=== PATIENT | female | born 1940 | race Caucasian/White ===

== ENCOUNTER 2022-02-26 11:10 | Inpatient (IN) | payer OTHER ==
[~2022-02-26] VITALS: Ht 147.3 cm; Wt 45.4 kg
[2022-02-26 11:26] VITALS: BP_SYST 144
[2022-02-26] MEDS ORDERED: NACL 0.9% 1,000 ML IV ONE (11:45)
[2022-02-26] MEDS ORDERED: ONDANSETRON HCL 4 MG/2 ML VIAL IVP ONE (11:45)
[2022-02-26 12:04] LABS: BASOPHILS % (AUTO) 0.6 % (0.0-2.0); EOSINOPHILS % (AUTO) 0.1 % (0.0-4.0); HEMATOCRIT 35.6 % (36-48); HEMOGLOBIN 12.2 g/dL (12.0-16.0); LYMPHOCYTES # (AUTO) 0.4 K/uL (1.0-5.5); LYMPHOCYTES % (AUTO) 4.6 % (20.5-51.5); MEAN CORPUSCULAR HEMOGLOBIN 32 pg (27-31); MEAN CORPUSCULAR HGB CONC 34 % (32-36); MEAN CORPUSCULAR VOLUME 93 fL (79.0-98.0); MONOCYTES # (AUTO) 0.4 K/uL (0.0-1.0); MONOCYTES % (AUTO) 4.4 % (1.7-9.3); NEUTROPHILS % (AUTO) 90.3 % (40.0-70.0); PLATELET COUNT (AUTO) 638 K/uL (130-430); RED BLOOD CELL COUNT(AUTO) 3.85 MIL/uL (4.2-6.2); RED CELL DISTRIBUTION WIDTH 13.5 % (9.0-15.0); WHITE BLOOD COUNT (AUTO) 8.9 K/uL (4.8-10.8)
[2022-02-26 12:10] LABS: ANION GAP 14 (5-15); CALCIUM 10.6 mg/dL (8.4-11.0); CHLORIDE 96 mmol/L (98-107); CREATININE 1.58 mg/dL (0.55-1.30); GLUCOSE 89 mg/dL (70-99); POTASSIUM 4.3 mmol/L (3.5-5.1); SODIUM SERUM 132 mmol/L (136-145); UREA NITROGEN, BLOOD 49 mg/dL (8-21)
[2022-02-26 12:34] LABS: ALANINE AMINOTRANSFERASE 23 U/L (12-78); ALBUMIN 2.3 g/dL (3.4-4.8); ASPARTATE AMINOTRANSFERASE 41 U/L (10-37); LIPASE 501 U/L (73-393); TOTAL BILIRUBIN 0.3 mg/dL (0.0-1.0)
[2022-02-26] MEDS ORDERED: fentaNYL CITRATE/PF 100 MCG/2 ML AMP IVP ONE (13:00)
[2022-02-26] MEDS: IBUPROFEN 400 MG TABLET PO PRN ×2 (15:46→15:47)
[2022-02-26] MEDS ORDERED: IBUPROFEN 400 MG TABLET ONE (15:47)
[2022-02-26 17:49] VITALS: BP_SYST 154
[2022-02-26] MEDS ORDERED: TRAM100T34 PO (18:05)
[2022-02-26] MEDS ORDERED: IBUP-1970 PO (18:05)
[2022-02-26 20:10] VITALS: BP_SYST 135
[2022-02-26] MEDS ORDERED: IBUPROFEN 800 MG TABLET PO PRN (23:00)
[2022-02-26] MEDS ORDERED: TEMAZEPAM 7.5 MG CAPSULE PO ONE (23:00)
[2022-02-26] MEDS: traMADol HCL HCL 50 MG TABLET (ULTRAM) PO PRN (23:43)
[2022-02-27 00:16] VITALS: BP_SYST 126
[2022-02-27] MEDS: HYDROcodone/ACETAMIN 7.5-325 MG TAB PO PRN (01:15)
[2022-02-27 08:00] VITALS: BP_SYST 138
[2022-02-27] MEDS: traMADol HCL HCL 50 MG TABLET (ULTRAM) PO PRN ×2 (09:28→20:17)
[2022-02-27] MEDS: ONDANSETRON HCL 4 MG/2 ML VIAL IM PRN ×2 (11:03→20:18)
[2022-02-27 12:00] VITALS: BP_SYST 130
[2022-02-27] MEDS ORDERED: LORazepam 2 MG/ML VIAL IVP PRN (12:15)
[2022-02-27] MEDS ORDERED: ONDANSETRON HCL 4 MG/2 ML VIAL IVP PRN (12:15)
[2022-02-27 16:00] VITALS: BP_SYST 132
[2022-02-27] MEDS: TEMAZEPAM 7.5 MG CAPSULE PO SCH (20:17)
[2022-02-28 08:00] VITALS: BP_SYST 137
[2022-02-28] MEDS: traMADol HCL HCL 50 MG TABLET (ULTRAM) PO PRN ×2 (10:00→16:58)
[2022-02-28] MEDS ORDERED: ALBUMIN HUMAN 25% 200 ML IV ONE (10:00)
[2022-02-28 10:35] LABS: BASOPHILS % (AUTO) 0.3 % (0.0-2.0); EOSINOPHILS % (AUTO) 0.4 % (0.0-4.0); HEMOGLOBIN 11.4 g/dL (12.0-16.0); LYMPHOCYTES # (AUTO) 0.6 K/uL (1.0-5.5); LYMPHOCYTES % (AUTO) 6.6 % (20.5-51.5); MEAN CORPUSCULAR HEMOGLOBIN 32 pg (27-31); MEAN CORPUSCULAR HGB CONC 35 % (32-36); MEAN CORPUSCULAR VOLUME 93 fL (79.0-98.0); MONOCYTES # (AUTO) 0.6 K/uL (0.0-1.0); MONOCYTES % (AUTO) 7.6 % (1.7-9.3); NEUTROPHILS # (AUTO) 7.3 K/uL (1.8-7.7); NEUTROPHILS % (AUTO) 85.1 % (40.0-70.0); PLATELET COUNT (AUTO) 544 K/uL (130-430); RED BLOOD CELL COUNT(AUTO) 3.56 MIL/uL (4.2-6.2); RED CELL DISTRIBUTION WIDTH 13.1 % (9.0-15.0); WHITE BLOOD COUNT (AUTO) 8.6 K/uL (4.8-10.8)
[2022-02-28 10:36] LABS: PROTHROMBIN TIME 10.3 SECS (9.5-12.5)
[2022-02-28 10:43] LABS: ALANINE AMINOTRANSFERASE 25 U/L (12-78); ALBUMIN 2.1 g/dL (3.4-4.8); ANION GAP 9 (5-15); ASPARTATE AMINOTRANSFERASE 42 U/L (10-37); CALCIUM 10.2 mg/dL (8.4-11.0); CHLORIDE 102 mmol/L (98-107); CREATININE 1.14 mg/dL (0.55-1.30); GLUCOSE 95 mg/dL (70-99); PHOSPHORUS 2.1 mg/dL (2.7-4.5); POTASSIUM 3.5 mmol/L (3.5-5.1); SODIUM SERUM 137 mmol/L (136-145); TOTAL BILIRUBIN 0.2 mg/dL (0.0-1.0); UREA NITROGEN, BLOOD 33 mg/dL (8-21)
[2022-02-28] MEDS ORDERED: NALOXONE HCL 0.4 MG/ML AMP (NARCAN) IVP PRN (11:45)
[2022-02-28 12:00] VITALS: BP_SYST 116
[2022-02-28] MEDS: MORPHINE 2 MG/ML INJ. SYRINGE IVP PRN ×2 (12:31→22:07)
[2022-02-28] MEDS: ACETYLCYSTEINE 20% 800 MG/4 ML VIAL (ORAL) PO SCH (13:59)
[2022-02-28] MEDS ORDERED: iohexoL 350 mgI/mL, 100 ML INFUS..BTL IV ONE (15:18)
[2022-02-28 16:00] VITALS: BP_SYST 115
[2022-02-28] MEDS: 0.45% NACL 1,000 ML IV SCH (17:11)
[2022-02-28 19:00] VITALS: BP_SYST 125
[2022-02-28] MEDS: TEMAZEPAM 7.5 MG CAPSULE PO SCH (22:05)
[2022-02-28 23:51] LABS: BILIRUBIN,URINE NEGATIVE (NEGATIVE); BLOOD, URINE NEGATIVE (NEGATIVE); CLARITY/URINE CLEAR (CLEAR); COLOR,URINE YELLOW (YELLOW); GLUCOSE,URINE NEGATIVE (NEGATIVE); KETONES,URINE NEGATIVE (NEGATIVE); LEUKOCYTE ESTERASE ,URINE NEGATIVE (NEGATIVE); NITRITE, URINE NEGATIVE (NEGATIVE); PROTEIN URINE NEGATIVE (NEGATIVE); UROBILINOGEN,URINE 0.2 (0.2-1.0)
[2022-03-01 00:37] VITALS: BP_SYST 114
[2022-03-01] MEDS: 0.45% NACL 1,000 ML IV SCH ×3 (00:50→20:36)
[2022-03-01] MEDS: ACETYLCYSTEINE 20% 800 MG/4 ML VIAL (ORAL) PO SCH (01:19)
[2022-03-01] MEDS: MORPHINE 2 MG/ML INJ. SYRINGE IVP PRN ×4 (05:33→23:55)
[2022-03-01 07:41] LABS: BASOPHILS % (AUTO) 0.5 % (0.0-2.0); EOSINOPHILS # (AUTO) 0.1 K/uL (0.0-0.4); EOSINOPHILS % (AUTO) 0.7 % (0.0-4.0); HEMATOCRIT 33.6 % (36-48); HEMOGLOBIN 11.3 g/dL (12.0-16.0); LYMPHOCYTES # (AUTO) 0.7 K/uL (1.0-5.5); LYMPHOCYTES % (AUTO) 7.5 % (20.5-51.5); MEAN CORPUSCULAR HEMOGLOBIN 31 pg (27-31); MEAN CORPUSCULAR HGB CONC 34 % (32-36); MEAN CORPUSCULAR VOLUME 93 fL (79.0-98.0); MONOCYTES # (AUTO) 0.8 K/uL (0.0-1.0); MONOCYTES % (AUTO) 8.8 % (1.7-9.3); NEUTROPHILS # (AUTO) 7.3 K/uL (1.8-7.7); NEUTROPHILS % (AUTO) 82.5 % (40.0-70.0); PLATELET COUNT (AUTO) 452 K/uL (130-430); RED BLOOD CELL COUNT(AUTO) 3.63 MIL/uL (4.2-6.2); RED CELL DISTRIBUTION WIDTH 13.3 % (9.0-15.0); WHITE BLOOD COUNT (AUTO) 8.8 K/uL (4.8-10.8)
[2022-03-01 08:03] LABS: ALANINE AMINOTRANSFERASE 20 U/L (12-78); ANION GAP 6 (5-15); ASPARTATE AMINOTRANSFERASE 38 U/L (10-37); CALCIUM 9.5 mg/dL (8.4-11.0); CHLORIDE 100 mmol/L (98-107); CREATININE 1.03 mg/dL (0.55-1.30); GLUCOSE 96 mg/dL (70-99); POTASSIUM 3.3 mmol/L (3.5-5.1); SODIUM SERUM 133 mmol/L (136-145); TOTAL BILIRUBIN 0.2 mg/dL (0.0-1.0); UREA NITROGEN, BLOOD 24 mg/dL (8-21)
[2022-03-01 08:06] LABS: HEPATITIS B SURFACE AG Negative (Negative); HEPATITIS C VIRUS AB <0.1 s/co ratio (0.0-0.9)
[2022-03-01] MEDS: traMADol HCL HCL 50 MG TABLET (ULTRAM) PO PRN ×3 (09:14→20:32)
[2022-03-01 09:50] VITALS: BP_SYST 131
[2022-03-01] MEDS: ONDANSETRON HCL 4 MG/2 ML VIAL IM PRN (14:59)
[2022-03-01 20:00] VITALS: BP_SYST 111
[2022-03-01] MEDS: TEMAZEPAM 7.5 MG CAPSULE PO SCH (20:31)
[2022-03-01] MEDS ORDERED: POTASSIUM CHLORIDE 20 MEQ TAB.PRT.SR PO ONE (22:00)
[2022-03-01 22:07] LABS: BF APPEARANCE UNSPUN SLIGHTLY HAZY (CLEAR); BODY FLUID COLOR YELLOW (LT YELLOW); BODY FLUID SOURCE/ TYPE PARACENTESIS; SOURCE/TYPE ,BODY FLUID PARACENTESIS
[2022-03-01 22:08] LABS: BODY FLUID TOTAL VOLUME 4700 mL; LYMPHOCYTES, BODY FLUID 42 %; MONOCYTES,BODY FLUID 47 %; NEUTROPHIL, BODY FLUID 11 %; RBC, BODY FLUID 683 /uL; WBC, BODY FLUID 166 /uL
[2022-03-01 22:14] LABS: APPEARANCE,SPUN,BODY FLUID CLEAR (CLEAR)
[2022-03-02] MEDS: DOCUSATE SODIUM 100 MG CAPSULE PO SCH ×3 (00:04→21:14)
[2022-03-02] MEDS: MORPHINE 2 MG/ML INJ. SYRINGE IVP PRN ×2 (04:06→08:57)
[2022-03-02 08:45] VITALS: BP_SYST 111; BP_SYST 137
[2022-03-02] MEDS: ONDANSETRON HCL 4 MG/2 ML VIAL IM PRN (08:55)
[2022-03-02 09:14] LABS: ANION GAP 8 (5-15); CALCIUM 9.7 mg/dL (8.4-11.0); CHLORIDE 100 mmol/L (98-107); CREATININE 0.95 mg/dL (0.55-1.30); GLUCOSE 92 mg/dL (70-99); POTASSIUM 4.3 mmol/L (3.5-5.1); SODIUM SERUM 132 mmol/L (136-145); UREA NITROGEN, BLOOD 18 mg/dL (8-21)
[2022-03-02] MEDS ORDERED: DOCU-144 PO (10:56)
[2022-03-02] MEDS ORDERED: TEMA7.5C2 PO (10:56)
[2022-03-02 10:58] VITALS: BP_SYST 127
[2022-03-02] MEDS: traMADol HCL HCL 50 MG TABLET (ULTRAM) PO PRN ×3 (11:02→23:22)
[2022-03-02] MEDS ORDERED: TRAM100T34 PO (11:21)
[2022-03-02] MEDS: HYDROcodone/ACETAMIN 7.5-325 MG TAB PO PRN ×2 (14:02→21:15)
[2022-03-02 15:25] VITALS: BP_SYST 106
[2022-03-02 18:50] LABS: BASOPHILS # (AUTO) 0.1 K/uL (0.0-0.2); BASOPHILS % (AUTO) 0.8 % (0.0-2.0); EOSINOPHILS # (AUTO) 0.1 K/uL (0.0-0.4); EOSINOPHILS % (AUTO) 1.3 % (0.0-4.0); HEMOGLOBIN 10.9 g/dL (12.0-16.0); LYMPHOCYTES # (AUTO) 0.8 K/uL (1.0-5.5); MEAN CORPUSCULAR HEMOGLOBIN 31 pg (27-31); MEAN CORPUSCULAR HGB CONC 33 % (32-36); MEAN CORPUSCULAR VOLUME 94 fL (79.0-98.0); MONOCYTES # (AUTO) 0.8 K/uL (0.0-1.0); MONOCYTES % (AUTO) 8.9 % (1.7-9.3); NEUTROPHILS # (AUTO) 7.3 K/uL (1.8-7.7); PLATELET COUNT (AUTO) 504 K/uL (130-430); RED BLOOD CELL COUNT(AUTO) 3.51 MIL/uL (4.2-6.2); RED CELL DISTRIBUTION WIDTH 13.4 % (9.0-15.0); WHITE BLOOD COUNT (AUTO) 9.1 K/uL (4.8-10.8)
[2022-03-02 20:00] VITALS: BP_SYST 115
[2022-03-02 20:16] LABS: BODY FLUID GLUCOSE 86 mg/dL; BODY FLUID TOTAL PROTEIN 3.8 g/dL
[2022-03-02] MEDS: TEMAZEPAM 7.5 MG CAPSULE PO SCH (21:14)
[2022-03-02] MEDS: 0.45% NACL 1,000 ML IV SCH (21:16)
[2022-03-03] VITALS: BP_SYST 127
[2022-03-03] MEDS: 0.45% NACL 1,000 ML IV SCH ×2 (05:56→20:09)
[2022-03-03] MEDS: MORPHINE 2 MG/ML INJ. SYRINGE IVP PRN ×5 (05:58→22:08)
[2022-03-03 08:00] VITALS: BP_SYST 135
[2022-03-03 08:53] LABS: BASOPHILS % (AUTO) 0.5 % (0.0-2.0); EOSINOPHILS # (AUTO) 0.1 K/uL (0.0-0.4); EOSINOPHILS % (AUTO) 1.2 % (0.0-4.0); HEMATOCRIT 31.6 % (36-48); HEMOGLOBIN 10.9 g/dL (12.0-16.0); LYMPHOCYTES # (AUTO) 0.6 K/uL (1.0-5.5); LYMPHOCYTES % (AUTO) 6.2 % (20.5-51.5); MEAN CORPUSCULAR HEMOGLOBIN 32 pg (27-31); MEAN CORPUSCULAR HGB CONC 35 % (32-36); MEAN CORPUSCULAR VOLUME 92 fL (79.0-98.0); MONOCYTES # (AUTO) 0.9 K/uL (0.0-1.0); MONOCYTES % (AUTO) 8.9 % (1.7-9.3); NEUTROPHILS # (AUTO) 8.5 K/uL (1.8-7.7); NEUTROPHILS % (AUTO) 83.2 % (40.0-70.0); PLATELET COUNT (AUTO) 488 K/uL (130-430); RED BLOOD CELL COUNT(AUTO) 3.42 MIL/uL (4.2-6.2); RED CELL DISTRIBUTION WIDTH 13.5 % (9.0-15.0); WHITE BLOOD COUNT (AUTO) 10.2 K/uL (4.8-10.8)
[2022-03-03] MEDS: DOCUSATE SODIUM 100 MG CAPSULE PO SCH ×3 (09:00→21:15)
[2022-03-03 09:06] LABS: ANTI NUCLEAR AB WITH REFLEX Negative (Negative)
[2022-03-03 09:06] LABS: ALANINE AMINOTRANSFERASE 24 U/L (12-78); ALBUMIN 1.9 g/dL (3.4-4.8); ANION GAP 9 (5-15); ASPARTATE AMINOTRANSFERASE 42 U/L (10-37); CALCIUM 9.5 mg/dL (8.4-11.0); CHLORIDE 99 mmol/L (98-107); CREATININE 1.06 mg/dL (0.55-1.30); GLUCOSE 92 mg/dL (70-99); POTASSIUM 4.7 mmol/L (3.5-5.1); SODIUM SERUM 133 mmol/L (136-145); TOTAL BILIRUBIN 0.2 mg/dL (0.0-1.0); UREA NITROGEN, BLOOD 19 mg/dL (8-21)
[2022-03-03] MEDS ORDERED: MIDAZOLAM HCL 5 MG/5 ML VIAL ONE (09:24)
[2022-03-03] MEDS: ONDANSETRON HCL 4 MG/2 ML VIAL IM PRN ×2 (10:15→17:31)
[2022-03-03] MEDS: HYDROcodone/ACETAMIN 7.5-325 MG TAB PO PRN ×2 (11:57→21:15)
[2022-03-03 13:00] VITALS: BP_SYST 111
[2022-03-03] MEDS: traMADol HCL HCL 50 MG TABLET (ULTRAM) PO PRN (16:08)
[2022-03-03 16:29] VITALS: BP_SYST 116
[2022-03-03 20:06] VITALS: BP_SYST 106
[2022-03-03] MEDS: TEMAZEPAM 7.5 MG CAPSULE PO SCH (21:16)
[2022-03-04] VITALS: BP_SYST 106
[2022-03-04 06:50] LABS: BASOPHILS % (AUTO) 0.5 % (0.0-2.0); EOSINOPHILS # (AUTO) 0.1 K/uL (0.0-0.4); EOSINOPHILS % (AUTO) 0.9 % (0.0-4.0); HEMOGLOBIN 10.5 g/dL (12.0-16.0); LYMPHOCYTES # (AUTO) 0.7 K/uL (1.0-5.5); LYMPHOCYTES % (AUTO) 7.2 % (20.5-51.5); MEAN CORPUSCULAR HEMOGLOBIN 32 pg (27-31); MEAN CORPUSCULAR HGB CONC 35 % (32-36); MEAN CORPUSCULAR VOLUME 92 fL (79.0-98.0); MONOCYTES # (AUTO) 0.7 K/uL (0.0-1.0); MONOCYTES % (AUTO) 7.7 % (1.7-9.3); NEUTROPHILS # (AUTO) 7.6 K/uL (1.8-7.7); NEUTROPHILS % (AUTO) 83.7 % (40.0-70.0); PLATELET COUNT (AUTO) 496 K/uL (130-430); RED BLOOD CELL COUNT(AUTO) 3.25 MIL/uL (4.2-6.2); RED CELL DISTRIBUTION WIDTH 13.6 % (9.0-15.0); WHITE BLOOD COUNT (AUTO) 9.1 K/uL (4.8-10.8)
[2022-03-04 08:00] VITALS: BP_SYST 126
[2022-03-04 08:08] LABS: ANION GAP 3 (5-15); CALCIUM 9.7 mg/dL (8.4-11.0); CHLORIDE 100 mmol/L (98-107); GLUCOSE 102 mg/dL (70-99); POTASSIUM 4.9 mmol/L (3.5-5.1); SODIUM SERUM 128 mmol/L (136-145); UREA NITROGEN, BLOOD 16 mg/dL (8-21)
[2022-03-04] MEDS: DOCUSATE SODIUM 100 MG CAPSULE PO SCH ×2 (09:51→21:09)
[2022-03-04] MEDS: 0.45% NACL 1,000 ML IV SCH ×2 (09:51→21:10)
[2022-03-04] MEDS: MORPHINE 2 MG/ML INJ. SYRINGE IVP PRN ×3 (09:52→23:07)
[2022-03-04 12:00] VITALS: BP_SYST 122
[2022-03-04 13:06] LABS: ANTI-SMOOTH MUSCLE AB 6 Units (0-19)
[2022-03-04] MEDS: HYDROcodone/ACETAMIN 7.5-325 MG TAB PO PRN (13:07)
[2022-03-04] MEDS: ONDANSETRON HCL 4 MG/2 ML VIAL IM PRN (17:02)
[2022-03-04 20:52] VITALS: BP_SYST 122
[2022-03-04] MEDS ORDERED: guaiFENesin ER 600 MG TAB PO SCH (21:00)
[2022-03-04] MEDS: TEMAZEPAM 7.5 MG CAPSULE PO SCH (21:09)
[2022-03-05] MEDS: traMADol HCL HCL 50 MG TABLET (ULTRAM) PO PRN ×2 (02:30→18:35)
[2022-03-05 07:42] LABS: ALANINE AMINOTRANSFERASE 23 U/L (12-78); ALBUMIN 1.7 g/dL (3.4-4.8); ANION GAP 8 (5-15); ASPARTATE AMINOTRANSFERASE 37 U/L (10-37); CALCIUM 9.4 mg/dL (8.4-11.0); CHLORIDE 98 mmol/L (98-107); CREATININE 0.82 mg/dL (0.55-1.30); GLUCOSE 107 mg/dL (70-99); POTASSIUM 3.7 mmol/L (3.5-5.1); SODIUM SERUM 127 mmol/L (136-145); TOTAL BILIRUBIN 0.3 mg/dL (0.0-1.0); UREA NITROGEN, BLOOD 15 mg/dL (8-21)
[2022-03-05 07:55] LABS: BASOPHILS % (AUTO) 0.4 % (0.0-2.0); EOSINOPHILS % (AUTO) 0.5 % (0.0-4.0); HEMATOCRIT 28.3 % (36-48); LYMPHOCYTES # (AUTO) 0.5 K/uL (1.0-5.5); LYMPHOCYTES % (AUTO) 5.4 % (20.5-51.5); MEAN CORPUSCULAR HEMOGLOBIN 32 pg (27-31); MEAN CORPUSCULAR HGB CONC 35 % (32-36); MEAN CORPUSCULAR VOLUME 92 fL (79.0-98.0); MONOCYTES # (AUTO) 0.8 K/uL (0.0-1.0); MONOCYTES % (AUTO) 8.4 % (1.7-9.3); NEUTROPHILS # (AUTO) 8.5 K/uL (1.8-7.7); NEUTROPHILS % (AUTO) 85.3 % (40.0-70.0); PLATELET COUNT (AUTO) 522 K/uL (130-430); RED BLOOD CELL COUNT(AUTO) 3.09 MIL/uL (4.2-6.2); RED CELL DISTRIBUTION WIDTH 13.5 % (9.0-15.0); WHITE BLOOD COUNT (AUTO) 9.9 K/uL (4.8-10.8)
[2022-03-05 08:05] VITALS: BP_SYST 123
[2022-03-05] MEDS: DOCUSATE SODIUM 100 MG CAPSULE PO SCH ×2 (09:39→21:07)
[2022-03-05] MEDS: MORPHINE 2 MG/ML INJ. SYRINGE IVP PRN ×3 (09:41→21:27)
[2022-03-05] MEDS: 0.45% NACL 1,000 ML IV SCH (09:52)
[2022-03-05] MEDS ORDERED: LACTULOSE 20 GM/30 ML UDC PO ONE (10:45)
[2022-03-05 12:03] VITALS: BP_SYST 117
[2022-03-05 16:37] VITALS: BP_SYST 110
[2022-03-05] MEDS: TEMAZEPAM 7.5 MG CAPSULE PO SCH (21:06)
[2022-03-05] MEDS: ONDANSETRON HCL 4 MG/2 ML VIAL IM PRN (21:08)
[2022-03-06] MEDS: HYDROcodone/ACETAMIN 7.5-325 MG TAB PO PRN (01:32)
[2022-03-06 07:22] LABS: BASOPHILS % (AUTO) 0.4 % (0.0-2.0); EOSINOPHILS % (AUTO) 0.2 % (0.0-4.0); HEMATOCRIT 28.9 % (36-48); HEMOGLOBIN 9.9 g/dL (12.0-16.0); LYMPHOCYTES # (AUTO) 0.6 K/uL (1.0-5.5); LYMPHOCYTES % (AUTO) 6.1 % (20.5-51.5); MEAN CORPUSCULAR HEMOGLOBIN 31 pg (27-31); MEAN CORPUSCULAR HGB CONC 34 % (32-36); MEAN CORPUSCULAR VOLUME 92 fL (79.0-98.0); MONOCYTES # (AUTO) 0.8 K/uL (0.0-1.0); MONOCYTES % (AUTO) 7.7 % (1.7-9.3); NEUTROPHILS # (AUTO) 8.4 K/uL (1.8-7.7); NEUTROPHILS % (AUTO) 85.6 % (40.0-70.0); PLATELET COUNT (AUTO) 522 K/uL (130-430); RED BLOOD CELL COUNT(AUTO) 3.15 MIL/uL (4.2-6.2); RED CELL DISTRIBUTION WIDTH 13.6 % (9.0-15.0); WHITE BLOOD COUNT (AUTO) 9.9 K/uL (4.8-10.8)
[2022-03-06 08:00] VITALS: BP_SYST 111
[2022-03-06 08:18] LABS: ANION GAP 8 (5-15); CALCIUM 9.9 mg/dL (8.4-11.0); CHLORIDE 98 mmol/L (98-107); CREATININE 0.82 mg/dL (0.55-1.30); GLUCOSE 93 mg/dL (70-99); POTASSIUM 4.2 mmol/L (3.5-5.1); SODIUM SERUM 127 mmol/L (136-145); UREA NITROGEN, BLOOD 17 mg/dL (8-21)
[2022-03-06] MEDS: LACTULOSE 20 GM/30 ML UDC PO SCH (09:53)
[2022-03-06] MEDS: DOCUSATE SODIUM 100 MG CAPSULE PO SCH ×2 (09:54→20:15)
[2022-03-06] MEDS: MORPHINE 2 MG/ML INJ. SYRINGE IVP PRN ×3 (09:55→20:15)
[2022-03-06 12:00] VITALS: BP_SYST 117
[2022-03-06] MEDS: ONDANSETRON HCL 4 MG/2 ML VIAL IM PRN ×2 (14:16→20:14)
[2022-03-06 16:00] VITALS: BP_SYST 120
[2022-03-06] MEDS: TEMAZEPAM 7.5 MG CAPSULE PO SCH (20:13)
[2022-03-07] MEDS: traMADol HCL HCL 50 MG TABLET (ULTRAM) PO PRN ×2 (02:37→18:05)
[2022-03-07 06:27] LABS: BASOPHILS % (AUTO) 0.4 % (0.0-2.0); EOSINOPHILS % (AUTO) 0.2 % (0.0-4.0); HEMATOCRIT 29.8 % (36-48); HEMOGLOBIN 10.3 g/dL (12.0-16.0); LYMPHOCYTES # (AUTO) 0.7 K/uL (1.0-5.5); LYMPHOCYTES % (AUTO) 5.7 % (20.5-51.5); MEAN CORPUSCULAR HEMOGLOBIN 32 pg (27-31); MEAN CORPUSCULAR HGB CONC 35 % (32-36); MEAN CORPUSCULAR VOLUME 91 fL (79.0-98.0); MONOCYTES % (AUTO) 8.6 % (1.7-9.3); NEUTROPHILS # (AUTO) 10.3 K/uL (1.8-7.7); NEUTROPHILS % (AUTO) 85.1 % (40.0-70.0); PLATELET COUNT (AUTO) 569 K/uL (130-430); RED BLOOD CELL COUNT(AUTO) 3.26 MIL/uL (4.2-6.2); RED CELL DISTRIBUTION WIDTH 13.7 % (9.0-15.0); WHITE BLOOD COUNT (AUTO) 12.1 K/uL (4.8-10.8)
[2022-03-07] MEDS: MORPHINE 2 MG/ML INJ. SYRINGE IVP PRN ×3 (06:32→20:32)
[2022-03-07 06:48] LABS: ALANINE AMINOTRANSFERASE 20 U/L (12-78); ALBUMIN 1.8 g/dL (3.4-4.8); ANION GAP 9 (5-15); ASPARTATE AMINOTRANSFERASE 41 U/L (10-37); CALCIUM 10.2 mg/dL (8.4-11.0); CHLORIDE 99 mmol/L (98-107); CREATININE 0.92 mg/dL (0.55-1.30); GLUCOSE 102 mg/dL (70-99); POTASSIUM 4.2 mmol/L (3.5-5.1); SODIUM SERUM 128 mmol/L (136-145); TOTAL BILIRUBIN 0.2 mg/dL (0.0-1.0); UREA NITROGEN, BLOOD 23 mg/dL (8-21)
[2022-03-07 08:00] VITALS: BP_SYST 115
[2022-03-07] MEDS: LACTULOSE 20 GM/30 ML UDC PO SCH (10:33)
[2022-03-07] MEDS: DOCUSATE SODIUM 100 MG CAPSULE PO SCH ×2 (10:33→20:29)
[2022-03-07] MEDS: HYDROcodone/ACETAMIN 7.5-325 MG TAB PO PRN ×2 (10:52→16:37)
[2022-03-07 12:00] VITALS: BP_SYST 118
[2022-03-07 16:00] VITALS: BP_SYST 108
[2022-03-07 20:00] VITALS: BP_SYST 121
[2022-03-07] MEDS: TEMAZEPAM 7.5 MG CAPSULE PO SCH (20:29)
[2022-03-08 01:12] VITALS: BP_SYST 106
[2022-03-08] MEDS: HYDROcodone/ACETAMIN 7.5-325 MG TAB PO PRN ×3 (01:12→20:02)
[2022-03-08] MEDS: traMADol HCL HCL 50 MG TABLET (ULTRAM) PO PRN (01:35)
[2022-03-08] MEDS ORDERED: traMADol HCL HCL 50 MG TABLET (ULTRAM) PO PRN (07:30)
[2022-03-08 07:40] LABS: BASOPHILS # (AUTO) 0.1 K/uL (0.0-0.2); BASOPHILS % (AUTO) 0.5 % (0.0-2.0); EOSINOPHILS % (AUTO) 0.2 % (0.0-4.0); HEMATOCRIT 31.8 % (36-48); HEMOGLOBIN 10.7 g/dL (12.0-16.0); LYMPHOCYTES # (AUTO) 0.6 K/uL (1.0-5.5); LYMPHOCYTES % (AUTO) 5.5 % (20.5-51.5); MEAN CORPUSCULAR HEMOGLOBIN 31 pg (27-31); MEAN CORPUSCULAR HGB CONC 34 % (32-36); MEAN CORPUSCULAR VOLUME 92 fL (79.0-98.0); MONOCYTES # (AUTO) 0.9 K/uL (0.0-1.0); MONOCYTES % (AUTO) 7.8 % (1.7-9.3); NEUTROPHILS # (AUTO) 9.8 K/uL (1.8-7.7); PLATELET COUNT (AUTO) 555 K/uL (130-430); RED BLOOD CELL COUNT(AUTO) 3.45 MIL/uL (4.2-6.2); RED CELL DISTRIBUTION WIDTH 14.1 % (9.0-15.0); WHITE BLOOD COUNT (AUTO) 11.4 K/uL (4.8-10.8)
[2022-03-08 07:44] LABS: ANION GAP 8 (5-15); CALCIUM 10.4 mg/dL (8.4-11.0); CHLORIDE 98 mmol/L (98-107); CREATININE 0.99 mg/dL (0.55-1.30); GLUCOSE 98 mg/dL (70-99); POTASSIUM 4.4 mmol/L (3.5-5.1); SODIUM SERUM 127 mmol/L (136-145); UREA NITROGEN, BLOOD 31 mg/dL (8-21)
[2022-03-08 08:00] VITALS: BP_SYST 119
[2022-03-08] MEDS: MORPHINE 2 MG/ML INJ. SYRINGE IVP PRN ×2 (08:34→14:41)
[2022-03-08] MEDS: DOCUSATE SODIUM 100 MG CAPSULE PO SCH ×2 (09:14→19:53)
[2022-03-08] MEDS: LACTULOSE 20 GM/30 ML UDC PO SCH (09:14)
[2022-03-08 12:00] VITALS: BP_SYST 125
[2022-03-08 20:00] VITALS: BP_SYST 119
[2022-03-08] MEDS: TEMAZEPAM 7.5 MG CAPSULE PO SCH (20:02)
[2022-03-09 00:47] VITALS: BP_SYST 122
[2022-03-09] MEDS: MORPHINE 2 MG/ML INJ. SYRINGE IVP PRN ×4 (04:14→21:30)
[2022-03-09] MEDS: HYDROcodone/ACETAMIN 7.5-325 MG TAB PO PRN ×2 (05:15→12:12)
[2022-03-09 06:00] VITALS: BP_SYST 105
[2022-03-09 07:09] LABS: BASOPHILS % (AUTO) 0.3 % (0.0-2.0); EOSINOPHILS % (AUTO) 0.1 % (0.0-4.0); HEMATOCRIT 28.7 % (36-48); HEMOGLOBIN 9.9 g/dL (12.0-16.0); LYMPHOCYTES # (AUTO) 0.5 K/uL (1.0-5.5); LYMPHOCYTES % (AUTO) 4.8 % (20.5-51.5); MEAN CORPUSCULAR HEMOGLOBIN 32 pg (27-31); MEAN CORPUSCULAR HGB CONC 35 % (32-36); MEAN CORPUSCULAR VOLUME 92 fL (79.0-98.0); MONOCYTES # (AUTO) 0.8 K/uL (0.0-1.0); MONOCYTES % (AUTO) 7.4 % (1.7-9.3); NEUTROPHILS # (AUTO) 9.4 K/uL (1.8-7.7); NEUTROPHILS % (AUTO) 87.4 % (40.0-70.0); PLATELET COUNT (AUTO) 448 K/uL (130-430); RED BLOOD CELL COUNT(AUTO) 3.13 MIL/uL (4.2-6.2); RED CELL DISTRIBUTION WIDTH 14.1 % (9.0-15.0); WHITE BLOOD COUNT (AUTO) 10.7 K/uL (4.8-10.8)
[2022-03-09 07:17] LABS: ANION GAP 7 (5-15); CHLORIDE 98 mmol/L (98-107); CREATININE 1.02 mg/dL (0.55-1.30); GLUCOSE 112 mg/dL (70-99); POTASSIUM 4.2 mmol/L (3.5-5.1); SODIUM SERUM 127 mmol/L (136-145); UREA NITROGEN, BLOOD 37 mg/dL (8-21)
[2022-03-09 08:00] VITALS: BP_SYST 120
[2022-03-09] MEDS: LACTULOSE 20 GM/30 ML UDC PO SCH (08:17)
[2022-03-09] MEDS: DOCUSATE SODIUM 100 MG CAPSULE PO SCH ×2 (08:17→21:28)
[2022-03-09 12:00] VITALS: BP_SYST 119
[2022-03-09] MEDS: ONDANSETRON HCL 4 MG/2 ML VIAL IM PRN ×2 (14:34→21:29)
[2022-03-09 16:00] VITALS: BP_SYST 128
[2022-03-09 20:00] VITALS: BP_SYST 127
[2022-03-09] MEDS: TEMAZEPAM 7.5 MG CAPSULE PO SCH (22:26)
[2022-03-10] MEDS: HYDROcodone/ACETAMIN 7.5-325 MG TAB PO PRN ×2 (00:57→22:11)
[2022-03-10 06:42] LABS: BASOPHILS # (AUTO) 0.1 K/uL (0.0-0.2); BASOPHILS % (AUTO) 0.4 % (0.0-2.0); EOSINOPHILS % (AUTO) 0.1 % (0.0-4.0); HEMATOCRIT 28.7 % (36-48); HEMOGLOBIN 9.8 g/dL (12.0-16.0); LYMPHOCYTES # (AUTO) 0.6 K/uL (1.0-5.5); LYMPHOCYTES % (AUTO) 5.1 % (20.5-51.5); MEAN CORPUSCULAR HEMOGLOBIN 31 pg (27-31); MEAN CORPUSCULAR HGB CONC 34 % (32-36); MEAN CORPUSCULAR VOLUME 92 fL (79.0-98.0); MONOCYTES # (AUTO) 0.8 K/uL (0.0-1.0); MONOCYTES % (AUTO) 6.8 % (1.7-9.3); NEUTROPHILS # (AUTO) 10.1 K/uL (1.8-7.7); NEUTROPHILS % (AUTO) 87.6 % (40.0-70.0); PLATELET COUNT (AUTO) 397 K/uL (130-430); RED BLOOD CELL COUNT(AUTO) 3.13 MIL/uL (4.2-6.2); RED CELL DISTRIBUTION WIDTH 14.1 % (9.0-15.0); WHITE BLOOD COUNT (AUTO) 11.6 K/uL (4.8-10.8)
[2022-03-10 08:00] VITALS: BP_SYST 117
[2022-03-10 08:36] LABS: ALANINE AMINOTRANSFERASE 18 U/L (12-78); ALBUMIN 1.8 g/dL (3.4-4.8); ANION GAP 6 (5-15); ASPARTATE AMINOTRANSFERASE 42 U/L (10-37); CALCIUM 10.2 mg/dL (8.4-11.0); CHLORIDE 101 mmol/L (98-107); CREATININE 1.02 mg/dL (0.55-1.30); GLUCOSE 104 mg/dL (70-99); PHOSPHORUS 2.7 mg/dL (2.7-4.5); POTASSIUM 4.5 mmol/L (3.5-5.1); SODIUM SERUM 131 mmol/L (136-145); TOTAL BILIRUBIN 0.2 mg/dL (0.0-1.0); UREA NITROGEN, BLOOD 39 mg/dL (8-21)
[2022-03-10] MEDS: LACTULOSE 20 GM/30 ML UDC PO SCH (09:00)
[2022-03-10] MEDS: DOCUSATE SODIUM 100 MG CAPSULE PO SCH ×2 (09:00→22:12)
[2022-03-10 11:55] LABS: FERRITIN 444 ng/mL (15-150)
[2022-03-10 11:58] LABS: CANCER AG, 125 86.9 U/mL (0.0-38.1); CEA 13.5 ng/mL (0.0-4.7)
[2022-03-10] MEDS: ONDANSETRON HCL 4 MG/2 ML VIAL IM PRN (20:47)
[2022-03-10] MEDS: TEMAZEPAM 7.5 MG CAPSULE PO SCH (22:11)
[2022-03-11] MEDS: MORPHINE 2 MG/ML INJ. SYRINGE IVP PRN ×2 (03:41→13:06)
[2022-03-11] MEDS: DOCUSATE SODIUM 100 MG CAPSULE PO SCH (09:00)
[2022-03-11] MEDS: LACTULOSE 20 GM/30 ML UDC PO SCH (09:00)
[2022-03-11] MEDS: HYDROcodone/ACETAMIN 7.5-325 MG TAB PO PRN (09:47)
[2022-03-11 12:31] VITALS: BP_SYST 118
== END 2022-03-11 13:30 | disposition hospice, home (50) | DRG 435 ==
LOC: SED 11:10 → SMU 14:01
PROVIDERS: ADMIT Preventive Medicine Preventive Medicine/Occupational Environmental Medicine; ATTEND Preventive Medicine Preventive Medicine/Occupational Environmental Medicine
PROC: 0W9G3ZZ Drainage of Peritoneal Cavity, Percutaneous Approach (ICD-10-PCS; 2022-02-28)
PROC: 0FB13ZX Excision of Right Lobe Liver, Percutaneous Approach, Diagnostic (ICD-10-PCS; principal; 2022-03-03)
DX: C22.9 Malignant neoplasm of liver, not specified as primary or secondary (principal); E43 Unspecified severe protein-calorie malnutrition; G93.41 Metabolic encephalopathy; E87.1 Hypo-osmolality and hyponatremia; N17.9 Acute kidney failure, unspecified; R18.8 Other ascites; K74.60 Unspecified cirrhosis of liver; D64.9 Anemia, unspecified; D75.839 Thrombocytosis, unspecified; E88.09 Other disorders of plasma-protein metabolism, not elsewhere classified; G89.29 Other chronic pain; K59.00 Constipation, unspecified; E86.0 Dehydration; N18.9 Chronic kidney disease, unspecified; E83.52 Hypercalcemia; K76.9 Liver disease, unspecified; K86.9 Disease of pancreas, unspecified; M19.90 Unspecified osteoarthritis, unspecified site; Z20.822 Contact with and (suspected) exposure to COVID-19; Z79.899 Other long term (current) drug therapy; Z68.20 Body mass index [BMI] 20.0-20.9, adult; Z88.8 Allergy status to other drugs, medicaments and biological substances
CPT/HCPCS: 36415; 47000; 49083; 71045; 71250-TC; 76376; 80048; 80053; 81003; 82042; 82105; 82140; 82150; 82306; 82378; 82728; 82947; 83516; 83605; 83690; 83735; 83970; 84100; 84157; 84302; 85025; 85610-TC; 86038; 86301; 86304; 86480; 86803; 87040; 87070-TC; 87340; 88108; 88305; 88307; 88313; 88341; 88342; 88361; 89051-TC; 89060-TC; 93005; 96361; 96374; 96375; 99285; J2250; J2270; J2405; J3010; J7030; Q9967; U0003